=== PATIENT | male | born 1965 | race Hispanic/Latino ===

== ENCOUNTER 2023-02-02 15:56 | Emergency (ER) | payer SELFPAY ==
[2023-02-02] MEDS ORDERED: IBUPROFEN 200 MG TAB PO ONE (16:19)
[2023-02-02] MEDS ORDERED: IBUPROFEN 400 MG TAB ONE (16:19)
--- NOTE | 2023-02-02 17:56 | EDPHYS ---
Physician Documentation [facility] Name: Kalpesh Morales Age: 57 yrs Sex: Male : 1965 Arrival Date: 02/02/2023 Time: 15:56 Bed IW1 Private MD: ED Physician Sandip Aviles HPI: 02/02 17:00 This 57 yrs old Male presents to ER via EMS with complaints of Covid Test. kb 17:01 The patient or guardian reports cough, flu symptoms, low-grade fever, myalgias. Onset: kb The symptoms/episode began/occurred yesterday. Severity of symptoms: At their worst the symptoms were moderate, in the emergency department the symptoms are unchanged. Modifying factors: The symptoms are alleviated by nothing, the symptoms are aggravated by nothing. Associated signs and symptoms: Pertinent positives: fever, sore throat. The patient has not experienced similar symptoms in the past. The patient has not recently seen a physician. Pt reports cough, fever, chills, sore throat, headache and malaise since yesterday. Brother in law recently tested positive for covid. Historical: - Allergies: 16:06 No Known Allergies; mb9 - Home Meds: 16:06 None [Active]; mb9 - PMHx: 16:06 None; mb9 - PSHx: 16:06 None; mb9 - Immunization history:: Adult Immunizations up to date. - Social history:: Smoking status: Patient denies any tobacco usage or history of. ROS: 17:01 Abdomen/GI: Negative for abdominal pain, nausea, vomiting, diarrhea, and constipation. kb 17:01 Constitutional: Positive for body aches, chills, fatigue, fever, malaise. 17:01 ENT: Positive for rhinorrhea, sinus congestion, sore throat. 17:01 Respiratory: Positive for cough. 17:01 All other systems are negative. Exam: 17:01 Constitutional: This is a well developed, well nourished patient who is awake, alert, kb and in no acute distress. Head/Face: Normocephalic, atraumatic. ENT: Moist Mucous membranes Cardiovascular: Regular rate and rhythm with a normal S1 and S2. No gallops, murmurs, or rubs. No pulse deficits. Respiratory: Respirations even and unlabored. No increased work of breathing. Talking in full sentences Abdomen/GI: Soft, non-tender. No distention Skin: Warm, dry with normal turgor. Normal color. MS/ Extremity: Pulses equal, no cyanosis. Neurovascular intact. Full, normal range of motion. Neuro: Awake and alert, GCS 15, oriented to person, place, time, and situation. Moves all extremities. Normal gait. Vital Signs: 16:04 BP 158 / 86; Pulse 105; Resp 18; Temp 101(O); Pulse Ox 98% on R/A; Weight 79.38 kg; mb9 Height 5 ft. 4 in. ; 16:04 Body Mass Index 30.04 (79.38 kg, 162.56 cm) mb9 MDM: 16:01 Patient medically screened. kb 17:02 Differential Diagnosis: Other flu, covid, uri. Data reviewed: vital signs, nurses kb notes. Historians other than the Patient: EMS: [facility]. Counseling: I had a detailed discussion with the patient and/or guardian regarding: the historical points, exam findings, and any diagnostic results supporting the discharge/admit diagnosis, lab results, the need for outpatient follow up, a family practitioner, to return to the emergency department if symptoms worsen or persist or if there are any questions or concerns that arise at home. 02/02 16:02 Order name: Flu; Complete Time: 17:10 kb 02/02 16:02 Order name: SARS-COV-2 RT PCR kb Administered Medications: 16:13 Drug: Ibuprofen PO 600 mg Route: PO; mb9 Disposition Summary: 02/02/23 17:55 Discharge Ordered Location: Home kb Condition: Stable kb Diagnosis - SARS-associated coronavirus as the cause of diseases classified elsewhere kb Followup: kb - With: Emergency Department - When: As needed - Reason: Worsening of condition Followup: kb - With: Private Physician - When: 2 - 3 days - Reason: Recheck today's complaints, Continuance of care, Re-evaluation by your physician Discharge Instructions: - Discharge Summary Sheet kb - COVID-19 kb - Viral Illness, Adult kb Forms: - Medication Reconciliation Form kb - Thank You Letter kb - Antibiotic Education kb - Prescription Opioid Use kb - Patient Portal Instructions kb Addendum: 02/04/2023 10:35 Co-signature as Attending Physician, Sandip Aviles MD I reviewed the patient's care r t provided by the Advanced Practice Provider and agree with the diagnosis and treatment plan. Signatures: Dispatcher [employer] Sonya Price, Jada Hawley RN RN mb9 Sandip Aviles MD MD rt
--- NOTE | 2023-02-02 17:56 | ER ---
Nurse's Notes [facility] Name: Kalpesh Morales Age: 57 yrs Sex: Male : 1965 Arrival Date: 02/02/2023 Time: 15:56 Bed IW1 Private MD: Diagnosis: SARS-associated coronavirus as the cause of diseases classified elsewhere Presentation: 02/02 16:03 Chief complaint: EMS states: "toned out for fever, cough, sore throat, and headache. mb9 Brother in law has COVID and pt states he want's a COVID test". 16:03 Method Of Arrival: EMS: [facility] mb9 16:04 Coronavirus screen: Vaccine status: Patient reports receiving the 2nd dose of the covid mb9 vaccine. Ebola Screen: No symptoms or risks identified at this time. Initial Sepsis Screen: Does the patient meet any 2 criteria? No. Patient's initial sepsis screen is negative. Does the patient have a suspected source of infection? No. Patient's initial sepsis screen is negative. Risk Assessment: Do you want to hurt yourself or someone else? Patient reports no desire to harm self or others. Onset of symptoms was February 02, 2023. 16:04 Acuity: RONALD 4 mb9 Triage Assessment: 16:06 General: Appears in no apparent distress. Behavior is calm, cooperative. Pain: Denies mb9 pain. Neuro: Pickard Agitation-Sedation Scale (RASS): 0 - Alert and Calm Level of Consciousness is awake, alert, obeys commands, Oriented to person, place, time, situation, Appropriate for age. Neuro: Reports headache. Cardiovascular: Patient's skin is warm and dry. Respiratory: Reports cough that is Airway is patent Respiratory effort is even, unlabored, Respiratory pattern is regular, symmetrical, Breath sounds are clear bilaterally. GI: Reports diarrhea. : No signs and/or symptoms were reported regarding the genitourinary system. Derm: Skin is pink, warm \\T\\ dry. Musculoskeletal: Range of motion: intact in all extremities. Historical: - Allergies: 16:06 No Known Allergies; mb9 - Home Meds: 16:06 None [Active]; mb9 - PMHx: 16:06 None; mb9 - PSHx: 16:06 None; mb9 - Immunization history:: Adult Immunizations up to date. - Social history:: Smoking status: Patient denies any tobacco usage or history of. Vital Signs: 16:04 BP 158 / 86; Pulse 105; Resp 18; Temp 101(O); Pulse Ox 98% on R/A; Weight 79.38 kg; mb9 Height 5 ft. 4 in. ; 16:04 Body Mass Index 30.04 (79.38 kg, 162.56 cm) mb9 ED Course: 15:59 Patient arrived in ED. mg5 16:01 Sonya Oreilly FNP-C [facility]. kb 16:01 Sandip Aviles MD is Attending Physician. kb 16:05 Triage completed. mb9 16:05 Arm band placed on. mb9 16:14 SARS-COV-2 RT PCR Sent. mb9 16:14 Flu Sent. mb9 18:27 No provider procedures requiring assistance completed. Patient did not have IV access ss during this emergency room visit. Administered Medications: 16:13 Drug: Ibuprofen PO 600 mg Route: PO; mb9 Outcome: 17:55 Discharge ordered by MD. kb 18:27 Discharged to home ambulatory. ss 18:27 Condition: good 18:27 Discharge instructions given to patient, Instructed on discharge instructions, follow up and referral plans. Demonstrated understanding of instructions, follow-up care. 18:27 Patient left the ED. ss Signatures: Sonya Oreilly FNP-C FNP-Ckb Blanchard, Shelby, RN RN Jada Mcdaniel RN RN mbStephanie Valle mg5
[2023-02-02 19:08] VITALS: BP 158/86; TEMP 101; O2SAT 98
== END 2023-02-02 18:27 | disposition home or self-care (01) ==
LOC: ER 15:56
DX: U07.1 COVID-19 (principal)
CPT/HCPCS: 87635; 87804; 99284